=== PATIENT | male | born 1965 | race Caucasian/White ===

== ENCOUNTER 2020-04-12 07:58 | Observation (INO) ==
[2020-04-12] MEDS ORDERED: Naloxone 0.4 MG/ML INJ IVP PRN ×2 (08:06→20:10)
[2020-04-12] MEDS ORDERED: Ondansetron ODT 4 MG TAB.RAPDIS SL PRN (08:06)
[2020-04-12] MEDS ORDERED: *HR* OxyCODONE Immed Rel 5 MG TABLET PO PRN ×3 (08:06→20:10)
[2020-04-12] MEDS ORDERED: Acetaminophen 325 MG TABLET PO PRN ×2 (08:06→20:10)
[2020-04-12] MEDS ORDERED: *HR* HYDROcodone/Acet 5/325 mg TABLET PO PRN ×2 (08:06→20:10)
[2020-04-12 11:00] LABS: Basophils % 0.4 %; Eosinophils # 0.1 K/mcL (0.0-0.6); Eosinophils % 1.3 %; Hematocrit 45.2 % (37.5-50.1); Hemoglobin 14.7 g/dL (12.9-16.9); Immature Granulocytes % 0.4 % (0-4); Lymphocytes # 3.1 K/mcL (0.6-4.6); Lymphocytes % 29.2 %; Mean Corpuscular HGB Conc 32.5 g/dL (31.6-35.5); Mean Corpuscular Hemoglobin 26.7 pg (28.0-33.3); Mean Platelet Volume 9.6 fL (9.4-12.4); Monocytes # 0.9 K/mcL (0.0-1.3); Monocytes % 8.9 %; Neutrophils # 6.3 K/mcL (1.6-8.9); Platelet Count 321 K/mcL (140-400); Red Blood Count 5.51 M/mcL (4.19-5.50); Red Cell Distribution Width 13.2 % (11.5-14.5); Segmented Neutrophils % 59.8 %; White Blood Count 10.5 K/mcL (4.3-11.1)
[2020-04-12 11:01] LABS: Prothrombin Time 11.3 Seconds (9.4-12.1)
[2020-04-12 11:04] LABS: Activated Partial Thrombo Time 25.5 Seconds (26.0-36.0)
[2020-04-12 11:14] LABS: Alanine Aminotransferase 17 Units/L (7-52); Albumin 4.4 g/dL (3.5-5.7); Albumin/Globulin Ratio 1.7 (1.1-2.2); Alkaline Phosphatase 85 Units/L (34-104); Aspartate Amino Transferase 18 Units/L (13-39); BUN/Creatinine Ratio 23 (6-26); Bilirubin,Total 0.5 mg/dL (0.3-1.0); Blood Urea Nitrogen 23 mg/dL (6-20); Calcium 9.9 mg/dL (8.6-10.3); Carbon Dioxide 31 mEq/L (23-29); Chloride 100 mEq/L (98-107); Globulin 2.6 g/dL (2.4-3.5); Glucose 105 mg/dL (70-105); Osmolality,Calculated 290 (280-300); Potassium 4.3 mEq/L (3.5-5.1); Sodium 138 mEq/L (136-145); eGFR For African Americans > 60 (> 60); eGFR For Non-African Americans > 60 (> 60)
[2020-04-12 12:57] LABS: Adenovirus Not Detected (Not Detect); Bordetella Pertussis Not Detected (Not Detect); Chlamydophila pneumoniae Not Detected (Not Detect); Coronavirus 229E Not Detected (Not Detect); Coronavirus HKU1 Not Detected (Not Detect); Coronavirus NL63 Not Detected (Not Detect); Coronavirus OC43 Not Detected (Not Detect); Human Metapneumovirus Not Detected (Not Detect); Human Rhinovirus/Enterovirus Not Detected (Not Detect); Influenza A Subtype 2009 H1 Not Detected (Not Detect); Influenza B Not Detected (Not Detect); Mycoplasma pneumoniae Not Detected (Not Detect); Parainfluenza Virus 1 Not Detected (Not Detect); Parainfluenza Virus 2 Not Detected (Not Detect); Parainfluenza Virus 3 Not Detected (Not Detect); Parainfluenza Virus 4 Not Detected (Not Detect); Respiratory Syncytial Virus Not Detected (Not Detect); SARS-CoV-2 Not Detected (Not Detect)
[2020-04-12] MEDS ORDERED: *HR* Propofol 200 MG/20 ML VIAL IVP ONE (14:56)
[2020-04-12] MEDS ORDERED: *HR* Midazolam HCl 2 MG/2 ML VIAL ONE (14:57)
[2020-04-12] MEDS ORDERED: Lidocaine -MPF 2% 2 ML VIAL ONE (14:57)
[2020-04-12] MEDS ORDERED: *HR* Succinylcholine 200 MG/10 ML VIAL IVP ONE (14:57)
[2020-04-12] MEDS ORDERED: *HR* FentaNYL (PF) 100 MCG/2 ML VIAL ONE (14:57)
[2020-04-12] MEDS ORDERED: Ondansetron 4 MG/2 ML VIAL ONE (14:57)
[2020-04-12] MEDS ORDERED: Bacitracin 50,000 UNIT, Polymyxin B Sulfate 500,000 UNIT, Sodium Chloride IRRigation 1,... IR ONE (15:00)
[2020-04-12] MEDS ORDERED: *HR* Remifentanil 1 MG VIAL IVP ONE (15:01)
[2020-04-12] MEDS ORDERED: Ondansetron 4 MG/2 ML VIAL IVP PRN ×2 (15:05→20:10)
[2020-04-12] MEDS ORDERED: Dexamethasone 4 MG/ML VIAL ONE (15:39)
[2020-04-12] MEDS ORDERED: EPHEDrine 50 MG/ML VIAL ONE (15:48)
[2020-04-12] MEDS ORDERED: Ketorolac 30 MG/ML VIAL ONE (15:53)
[2020-04-12] MEDS ORDERED: CeFAZolin Syr 2,000MG/20 ML 2,000 MG/20 ML SYRINGE IVPB ONE (16:00)
[2020-04-12] MEDS ORDERED: Lidocaine -MPF 4% 5 ML AMPUL ONE (16:01)
[2020-04-12] MEDS ORDERED: Sugammadex Sodium 200 MG/2 ML VIAL IV ONE (17:17)
[2020-04-12] MEDS: *HR* HYDROmorphone PF 0.5 MG/0.5 ML SYRINGE IVP PRN ×2 (18:00→18:15)
[2020-04-12] MEDS ORDERED: cloNIDine HCL 0.1 MG TABLET ONE (18:51)
[2020-04-12] MEDS ORDERED: cloNIDine HCL 0.1 MG TABLET PO ONE (18:53)
[2020-04-12] MEDS ORDERED: Ringers Solution, Lactated 1,000 ML IVC SCH (20:10)
[2020-04-12] MEDS: CeFAZolin 2 GM/120 ML BAG IVPB SCH (21:36)
[2020-04-13] MEDS: CeFAZolin 2 GM/120 ML BAG IVPB SCH (09:46)
[2020-04-13 11:01] VITALS: BP 127/80
== END 2020-04-13 11:54 | disposition home or self-care (01) ==
LOC: 3NENU 09:35 → SUATTDRO 09:35 → INTOOBSV 09:35
PROVIDERS: ADMIT Orthopaedic Surgery Orthopaedic Surgery of the Spine; ATTEND Internal Medicine